=== PATIENT | male | born 2000 | race Caucasian/White ===

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

== ENCOUNTER 2024-03-29 16:39 | Emergency (ER) | payer OTHER, BC, SELFPAY ==
[2024-03-29 16:40] VITALS: BP 127/82; PULSE 94; RESP 18; TEMP 36.4; O2SAT 100; BMI 19.6
--- NOTE | 2024-03-29 18:31 | EX.ED.UPPERE ---
HPI History of Present Illness HPI Narrative: Patient presents with laceration to the tip of his left thumb. Patient states that he cut a small piece of it off the tip. Patient is right-hand dominant. Patient describes the pain as sharp and stabbing. Patient states the bleeding was persistent but has since stopped. Patient states that his pain is worse with any pressure to the area. Patient denies any paresthesias or weakness. Mother thinks the patient's last tetanus was approximately 9-1/2 years ago. Chief Complaint: Laceration Informant: patient and parent Occured/Mechanism Mechanism/Context: Yes injury and Yes work related Onset/Context/Timing Onset: Today Context: Sudden Onset Timing: Continuous Quality of Pain: Sharp and Stabbing Location: Tip of left thumb Worsened by: Pressure Relieved by: Nothing Associated Symptoms Associated Symptoms: Negative for Parasthesia, Weakness or Loss of Funtion Narrative Tetanus Immunization: 5-10 years [facility] Medical History Depression Allergy/AdvReac Type Severity Reaction Status Date / Time No Known Allergies Allergy Verified 03/29/24 16:40 Surgical History History of wisdom tooth extraction Social History Smoking Status: Never smoker alcohol intake: never ROS ROS ED Constitutional Constitutional ED: Denies chills or fever(s) Eyes Eyes: Denies blurry vision or change in vision ENT ENT ED: Denies rhinorrhea or sore throat Cardiovascular Cardiovascular: Denies chest pain or palpitations Respiratory/Chest Respiratory/Chest: Denies cough or dyspnea Gastrointestinal Gastrointestinal: Denies nausea or vomiting Genitourinary Genitourinary ED: Denies dysuria or hematuria Musculoskeletal Musculoskeletal: Denies back pain or neck pain Integumentary Denies abscess or rash Neurologic Neurologic: Denies headache(s) or weakness Allergic/Immunologic Allergic/Immunologic ED: Denies mouth swelling or urticaria EXAM Physical Exam Const Vital Signs: 03/29/24 16:40 Temperature 97.5 F L Temperature Source Temporal Pulse Rate 94 Respiratory Rate 18 Blood Pressure 127/82 H Blood Pressure Mean 97 Pulse Ox 100 Oxygen Delivery Method Room Air Positive well nourished and well developed General Appearance ED: well developed and NAD HEENT Reports moist mucous membranes normocephalic and atraumatic Neck full ROM and supple Extremity Extremity Narrative: There is a 1 cm diameter avulsion laceration over the ulnar aspect of the tip of the left thumb. There is no active bleeding noted. There is no bony crepitance or step-off. There is no deformity noted. There is good range of motion of the MP and IP joints. Sensation was intact to light touch in all digits. Capillary refill is less than 2 seconds in all digits. Neuro oriented x3, CN's II-XII intact bilaterally, moves all extremities, no focal motor deficits and no sensory deficits noted Sensorium / Orientation: alert Motor Exam: strength 5/5 throughout Psych mental status grossly normal MDM MDM MDM Narrative Medical decision making narrative: Patient was advised that this is an avulsion laceration and sutures are not necessary at this time. Patient was given a tetanus booster. Patient was instructed to keep the wound clean and dry. Patient was instructed to follow-up with his primary care physician or Workmen's Comp. physician in 5 to 7 days. Patient was instructed to change the dressing daily. Patient was instructed to return if worse in any way. Patient understood and was agreeable with the plan. All questions were answered. Discharge Plan Triage Chief Complaint: Laceration ED Provider: Chaz Downing Dx/Rx/DC Orders Clinical Impression: Laceration of thumb, Avulsion of soft tissue Instructions: ED Laceration Superficial No Stitch Primary Care Provider: Maria Luisa Foster Referrals: Maria Luisa Foster MD [Primary Care Provider] - 5-7 Days Print Language: Other Disposition Disposition: Home, Self Care
[2024-03-29 18:34] VITALS: BP 127/82; PULSE 94; RESP 18; TEMP 36.4; O2SAT 100
[2024-03-29] MEDS: Diphth,Pertuss(Acell),Tet Vac 0.5 ML Vial IM (18:36)
== END 2024-03-29 18:57 | disposition home or self-care (01) ==
LOC: ED 18:54
PROVIDERS: Emergency Provider Emergency Medicine; PCP Nurse Practitioner Family; Visit Provider Emergency Medicine
DX: S61.012A Laceration without foreign body of left thumb without damage to nail, initial encounter (principal); Y99.0 Civilian activity done for income or pay; Z23 Encounter for immunization; W26.8XXA Contact with other sharp object(s), not elsewhere classified, initial encounter
CPT/HCPCS: 90471; 90715; 99283